=== PATIENT | female | born 1960 | race Caucasian/White ===

== ENCOUNTER 2017-05-05 11:44 | Emergency (ER) | payer MEDICARE ==
--- NOTE | ~2017-05-05 | CR20 ---
[facility]. [facility] A Service of [facility] RADIOLOGY TEXT RESULTS PATIENT: IRIS NATH LOCATION: SED : 58 UNIT #: [id number] AGE: [address]: VIRI PERALES SEX: F ORDER DR: [id number] [address] [address] [id number] E MR#: [id number] Acc #: [id number] NAME: IRIS NATH : 1960 SEX: F STUDY DATE/TIME: 05/05/2017 12:06 UNIT: SED ROOM: STUDY DESCRIPTION: CR Ankle Min 3 Views Lt Attending Physician: Viri Perales Aprn Ordering Physician: Viri Perales Aprn Primary Care Physician: Fritz Castro M.D. MEDICAL IMAGING REPORT This report is preliminary unless electronic signature is present. EXAM Left ankle 3 views, 05/05/2017 12:06 hours HISTORY 56-year-old woman with complaint of ankle pain and swelling. Patient states she tripped in a hole and rolled her ankle 3 days ago with persistent pain. COMPARISON Left foot film 05/05/2017 and 11/02/2015. FINDINGS AP, lateral and oblique views demonstrate no ankle fracture or dislocation. IMPRESSION No ankle fracture or dislocation. Dictated by... Sushila Douglas M.D. THIS IS AN ELECTRONICALLY VERIFIED REPORT Sushila Douglas M.D. at 05/05/2017 5:22 PM Felipe TD: 05/05/2017 14:38 JOB #: [id number] MEDICAL IMAGING REPORT Page 1 of 1
--- NOTE | ~2017-05-05 | CR126 ---
[facility] A Service [facility] RADIOLOGY TEXT RESULTS PATIENT: IRIS NATH LOCATION: SED : 58 UNIT #: [id number] AGE: [address]: VIRI PERALES SEX: F ORDER DR: [id number] [address] [address] [id number] E MR#: [id number] Acc #: [id number] NAME: IRIS NATH : 1960 SEX: F STUDY DATE/TIME: 05/05/2017 12:06 UNIT: SED ROOM: STUDY DESCRIPTION: CR Foot Complete Min 3 View Lt Attending Physician: Viri Perales Aprn Ordering Physician: Viri Perales Aprn Primary Care Physician: Fritz Castro M.D. MEDICAL IMAGING REPORT This report is preliminary unless electronic signature is present. EXAM Left foot, 05/05. INDICATION Pain and swelling after rolling injury and tripping in a hole 3 days ago. FINDINGS Three views of the left foot were obtained. There is some lucencies in the head of the fifth metatarsal which could reflect nondisplaced fractures. Correlate with site of tenderness. Additionally, there are some small calcifications adjacent to the lateral margin of the cuboid. These could reflect avulsion fractures of undetermined age. No other fractures are seen. The remainder of the foot is negative. IMPRESSION Faint lucencies in the head of the fifth metatarsal could reflect nondisplaced fractures. Correlate with site of tenderness. Small bone fragments adjacent to the lateral margin of the cuboid could reflect avulsion injuries of undetermined age. The rest of the foot is negative. Dictated by... Kewrin Martinez Jr., M.D. THIS IS AN ELECTRONICALLY VERIFIED REPORT Kerwin Martinez Jr., M.D. at 05/05/2017 4:39 PM CECY/jagdeep TD: 05/05/2017 14:46 JOB #: [id number] [facility] A Service [facility] RADIOLOGY TEXT RESULTS PATIENT: IRIS [facility]ATH [id number] 58 UNIT #: [id number] AGE: [address]: VIRI PERALES SEX: F ORDER DR: MEDICAL IMAGING REPORT Page 1 of 1
[~2017-05-05 11:44] MED LIST: AZULFIDINE500 M1 PO; CIMZIA200 MG/KIT; CIMZIA400 MG/2 M; CLONAZEPAM2 MG; CYMBALTA20 MG; DAZIDOX20 MG; DICYCLOMINE HCL20 MG PO; EC-NAPROSYN500 MG PO; EMBREL; FOLIC ACID800 MCG; FOSAMAX PO; HYDROCODONE-APA1 T49 PO; KLONOPIN PO; LIDODERM30 EA TOP; LUNESTA PO; METHOTREXATE2.5 MG PO; OXYCONTIN PO; OXYCONTIN60 MG; PERCOCET10 PO; PREDNISONE PO; PROZAC; SEE NOTE; SOMA; SULFASALAZINE; TEMAZEPAM PO; VIMOVO 500-201 EACH PO; VOLTAREN75 MG PO; [UNRECOGNIZED DRUG - OTHER]
[2017-05-05] MEDS ORDERED: CIMZIA400 MG (11:47)
[2017-05-05] MEDS ORDERED: FOLIC ACID (11:47)
[2017-05-05] MEDS ORDERED: TREXALL10 MG (11:47)
== END 2017-05-05 13:25 | disposition home or self-care (01) ==
LOC: SED 11:44
DX: S93.402A Sprain of unspecified ligament of left ankle, initial encounter (principal); M06.9 Rheumatoid arthritis, unspecified; F17.210 Nicotine dependence, cigarettes, uncomplicated; X50.1XXA Overexertion from prolonged static or awkward postures, initial encounter; Y92.9 Unspecified place or not applicable
CPT/HCPCS: 29515; 73610; 73630; 99283